=== PATIENT | male | born 1950 | race Caucasian/White ===

== ENCOUNTER 2023-12-26 18:11 | Observation (INO) | payer OTHER, MEDICARE ==
[2023-12-26] MEDS: Sodium Chloride 0.9% 1,000 ML IV ONE ×2 (18:25→19:30)
[2023-12-26 18:34] LABS: BASOPHILS ABSOLUTE AUTO 0.06 10^3/uL (0.00-0.10); BASOPHILS PERCENT AUTO 0.8 % (0.0-1.0); EOSINOPHILS ABSOLUTE AUTO 0.07 10^3/uL (0.10-0.30); HEMOGLOBIN 17.4 g/dL (13.0-17.0); IMMATURE GRAN ABSOLUTE AUTO 0.01 10^3/uL (0.00-0.50); IMMATURE GRAN PERCENT AUTO 0.1 % (0.0-5.0); LYMPHOCYTES ABSOLUTE AUTO 2.08 10^3/uL (1.00-4.00); MEAN CORPUSCULAR HEMOGLOBIN 33.7 pg (27.0-31.0); MEAN CORPUSCULAR HGB CONC 34.8 g/dL (32.0-36.0); MEAN CORPUSCULAR VOLUME 96.9 fL (82.0-92.0); MEAN PLATELET VOLUME 10.9 fL (7.4-10.4); MONOCYTES PERCENT AUTO 9.7 % (2.0-8.0); NEUTROPHILS ABSOLUTE AUTO 4.26 10^3/uL (2.50-7.00); NEUTROPHILS PERCENT AUTO 59.4 % (50.0-70.0); PLATELET COUNT,PLT 270 10^3/uL (150-400); RED BLOOD CELL COUNT 5.16 10^6/uL (4.50-6.00); RED CELL DISTRIBUTION WIDTH 13.2 % (11.5-14.5); WHITE BLOOD CELL COUNT,WBC 7.18 10^3/uL (5.00-10.00)
[2023-12-26 18:48] LABS: POTASSIUM,K 4.2 mmol/L (3.5-5.1)
[2023-12-26 19:07] LABS: ALBUMIN 2.64 g/dL (3.40-5.00); ANION GAP 19.5 mmol/L (5-15); CARBON DIOXIDE,CO2 20.7 mmol/L (21.0-32.0); CREATININE 0.63 mg/dL (0.51-1.17); EST CRCL DRUG DOSING (CG) 111.79 mL/min; PROTEIN TOTAL,TP 6.4 g/dL (6.4-8.2)
[2023-12-26 19:13] LABS: CALCIUM 8.4 mg/dL (8.7-10.3)
[2023-12-26] MEDS ORDERED: Thiamine 100 MG in Sodium Chloride 0.9% 100 ML IV ONE (19:13)
[2023-12-26] MEDS ORDERED: Folic Acid 50 MG/10 ML MDV IV ONE (19:15)
[2023-12-26] MEDS: Ondansetron 4 MG/2 ML SDV IVPUSH ONE (19:31)
[2023-12-26] MEDS: MVI, Adult with Vitamin K 10 ML, Folic Acid 1 MG, Thiamine 100 MG in D5 1/2 NS w/ 20 mE... IV ONE (19:59)
[2023-12-26] MEDS: Multivitamins with Minerals/Iron/Folic Acid/Lycopene Tab PO ONE (19:59)
[2023-12-26] MEDS: KCL IV ONE (20:00)
[2023-12-26] MEDS: THIAMINE IV ONE (20:00)
[2023-12-26] MEDS: D5 IV ONE (20:00)
[2023-12-26] MEDS: 1/2 NS W IV ONE (20:00)
[2023-12-26] MEDS: FOLIC ACID IV ONE (20:00)
[2023-12-26] MEDS ORDERED: Acetaminophen 325 MG Tab PO PRN (21:42)
[2023-12-26] MEDS ORDERED: Polyethylene Glycol 3350 Powder 17 GM Packet PO PRN (21:42)
[2023-12-26] MEDS ORDERED: Acetaminophen/oxyCODONE 325-5 MG Tab PO PRN (21:42)
[2023-12-26] MEDS ORDERED: Albuterol/Ipratropium 3.0-0.5 MG/3 ML Neb Soln NEB PRN (21:42)
[2023-12-26] MEDS ORDERED: Promethazine 25 MG/ML SDV IM PRN (21:42)
[2023-12-26] MEDS ORDERED: Docusate Sodium 100 MG Cap PO PRN (21:42)
[2023-12-26] MEDS ORDERED: Ondansetron 4 MG Tab.DIS PO PRN (21:42)
[2023-12-26] MEDS ORDERED: Melatonin 3 MG Tab PO PRN (21:42)
[2023-12-27 01:37] LABS: APPEARANCE,URINE CLEAR (CLEAR); BILIRUBIN,URINE NEGATIVE (NEGATIVE); COLOR,URINE YELLOW (YELLOW); GLUCOSE,URINE NEGATIVE (NEGATIVE); KETONES,URINE NEGATIVE (NEGATIVE); LEUKOCYTE ESTERASE,URINE NEGATIVE (NEGATIVE); NITRITE,URINE NEGATIVE (NEGATIVE); OCCULT BLOOD,URINE NEGATIVE (NEGATIVE); PROTEIN,URINE NEGATIVE (NEGATIVE); UROBILINOGEN,URINE 0.2 E.U./dL (0.2-1.0)
[2023-12-27 01:44] LABS: BACTERIA,URINE OCCASIONAL /HPF (NONE TO FEW); EPITHELIAL CELLS,URINE FEW /LPF; RBC,URINE 0-5 /HPF (0-5); WBC,URINE 0-5 /HPF (0-5)
[2023-12-27 07:06] LABS: BASOPHILS ABSOLUTE AUTO 0.07 10^3/uL (0.00-0.10); BASOPHILS PERCENT AUTO 0.9 % (0.0-1.0); EOSINOPHILS ABSOLUTE AUTO 0.12 10^3/uL (0.10-0.30); EOSINOPHILS PERCENT AUTO 1.6 % (1.0-3.0); HEMATOCRIT 45.4 % (40.0-52.0); HEMOGLOBIN 15.6 g/dL (13.0-17.0); IMMATURE GRAN ABSOLUTE AUTO 0.01 10^3/uL (0.00-0.50); IMMATURE GRAN PERCENT AUTO 0.1 % (0.0-5.0); LYMPHOCYTES ABSOLUTE AUTO 2.07 10^3/uL (1.00-4.00); LYMPHOCYTES PERCENT AUTO 27.1 % (20.0-40.0); MEAN CORPUSCULAR HEMOGLOBIN 33.5 pg (27.0-31.0); MEAN CORPUSCULAR HGB CONC 34.4 g/dL (32.0-36.0); MEAN CORPUSCULAR VOLUME 97.4 fL (82.0-92.0); MEAN PLATELET VOLUME 10.4 fL (7.4-10.4); MONOCYTES ABSOLUTE AUTO 0.97 10^3/uL (0.10-0.80); MONOCYTES PERCENT AUTO 12.7 % (2.0-8.0); NEUTROPHILS ABSOLUTE AUTO 4.39 10^3/uL (2.50-7.00); NEUTROPHILS PERCENT AUTO 57.6 % (50.0-70.0); PLATELET COUNT,PLT 220 10^3/uL (150-400); RED BLOOD CELL COUNT 4.66 10^6/uL (4.50-6.00); RED CELL DISTRIBUTION WIDTH 13.2 % (11.5-14.5); WHITE BLOOD CELL COUNT,WBC 7.63 10^3/uL (5.00-10.00)
[2023-12-27 07:21] LABS: ALBUMIN 2.16 g/dL (3.40-5.00); ANION GAP 9.3 mmol/L (5-15); BILIRUBIN TOTAL 1.7 mg/dL (0.2-1.0); CALCIUM 8.1 mg/dL (8.7-10.3); CARBON DIOXIDE,CO2 29.6 mmol/L (21.0-32.0); CREATININE 0.72 mg/dL (0.51-1.17); EST CRCL DRUG DOSING (CG) 97.82 mL/min; MAGNESIUM 1.8 mg/dL (1.8-2.4); PHOSPHORUS 3.2 mg/dL (2.6-4.7); POTASSIUM,K 4.9 mmol/L (3.5-5.1); PROTEIN TOTAL,TP 5.3 g/dL (6.4-8.2)
[2023-12-27] MEDS: Enoxaparin 40 MG/0.4 ML Syringe SUBCUT SCH (08:34)
[2023-12-27] MEDS: Magnesium Oxide 500 MG Tab PO ONE (08:35)
[2023-12-27] MEDS: Nicotine 21 MG/24 Hr Patch TRDERM SCH (08:38)
== END 2023-12-27 12:46 | disposition home or self-care (01) ==
LOC: KA.ED 18:11 → KA.MS 20:06
PROVIDERS: ADMIT Nurse Practitioner Family; ATTEND Internal Medicine
DX: R62.7 Adult failure to thrive (principal); R53.1 Weakness; R63.0 Anorexia; E87.20 Acidosis, unspecified; D75.1 Secondary polycythemia; F10.20 Alcohol dependence, uncomplicated
CPT/HCPCS: 36415; 80053; 81001; 82947; 83605; 83735; 84100; 85025; 87040; 93010; 96361; 96374; 99284; 99285-25; A9270-GY; J1650; J2405; J3411; J3480; J3490; J7030; Q3014

== ENCOUNTER 2024-08-22 14:52 | Emergency (ER) | payer OTHER ==
[2024-08-22] MEDS: Diphtheria,Pertussis(Acell),Tetanus Vaccine 0.5 ML Syringe IM ONE (15:30)
[2024-08-22 16:32] VITALS: BP 152/76; PULSE 76
[2024-08-22] MEDS: Lidocaine 2% with EPINEPHrine 1:100,000 20 ML MDV INJECT ONE (16:47)
[2024-08-22] MEDS: Lidocaine 2% with EPINEPHrine 1:100,000 20 ML MDV ONE (16:47)
== END 2024-08-22 15:57 | disposition home or self-care (01) ==
LOC: KA.ED 14:52
DX: S81.812A Laceration without foreign body, left lower leg, initial encounter (principal); Z23 Encounter for immunization; Z88.8 Allergy status to other drugs, medicaments and biological substances; Z79.899 Other long term (current) drug therapy; W26.8XXA Contact with other sharp object(s), not elsewhere classified, initial encounter; Y93.01 Activity, walking, marching and hiking; Y92.009 Unspecified place in unspecified non-institutional (private) residence as the place of occurrence of the external cause
CPT/HCPCS: 12002; 90471; 90715; 99282-25; 99283; J3490

== ENCOUNTER 2024-10-15 20:43 | Emergency (ER) | payer OTHER ==
[2024-10-15 21:00] LABS: BASOPHILS ABSOLUTE AUTO 0.04 10^3/uL (0.00-0.10); BASOPHILS PERCENT AUTO 0.4 % (0.0-1.0); EOSINOPHILS ABSOLUTE AUTO 0.05 10^3/uL (0.10-0.30); EOSINOPHILS PERCENT AUTO 0.5 % (1.0-3.0); HEMATOCRIT 40.6 % (40.0-52.0); HEMOGLOBIN 13.4 g/dL (13.0-17.0); IMMATURE GRAN ABSOLUTE AUTO 0.01 10^3/uL (0.00-0.04); IMMATURE GRAN PERCENT AUTO 0.1 % (0.0-0.4); LYMPHOCYTES ABSOLUTE AUTO 3.06 10^3/uL (1.00-4.00); LYMPHOCYTES PERCENT AUTO 27.7 % (20.0-40.0); MEAN CORPUSCULAR HEMOGLOBIN 31.8 pg (27.0-31.0); MEAN CORPUSCULAR VOLUME 96.2 fL (82.0-92.0); MEAN PLATELET VOLUME 9.9 fL (7.4-10.4); MONOCYTES PERCENT AUTO 8.2 % (2.0-8.0); NEUTROPHILS ABSOLUTE AUTO 6.97 10^3/uL (2.50-7.00); NEUTROPHILS PERCENT AUTO 63.1 % (50.0-70.0); PLATELET COUNT,PLT 286 10^3/uL (150-400); RED BLOOD CELL COUNT 4.22 10^6/uL (4.50-6.00); RED CELL DISTRIBUTION WIDTH 14.1 % (11.5-14.5); WHITE BLOOD CELL COUNT,WBC 11.03 10^3/uL (5.00-10.00)
[2024-10-15 21:14] LABS: ALBUMIN 2.59 g/dL (3.40-5.00); ANION GAP 9.7 mmol/L (5-15); BILIRUBIN TOTAL 0.3 mg/dL (0.2-1.0); CALCIUM 8.4 mg/dL (8.7-10.3); CARBON DIOXIDE,CO2 26.5 mmol/L (21.0-32.0); CREATININE 0.64 mg/dL (0.51-1.17); EST CRCL DRUG DOSING (CG) 118.71 mL/min; POTASSIUM,K 4.2 mmol/L (3.5-5.1); PROTEIN TOTAL,TP 5.7 g/dL (6.4-8.2)
[2024-10-15] MEDS: Sodium Chloride 0.9% 1,000 ML IV SCH (22:20)
[2024-10-15] MEDS: Iopamidol 755 Mg/ML 100 ML Bottle IV ONE (22:53)
[2024-10-15] MEDS: Sodium Chloride 0.9% 100 ML IV SCH (22:53)
== END 2024-10-16 00:30 ==
LOC: EDBD 20:43 → KA.ED 20:43
DX: R04.2 Hemoptysis (principal); Z88.8 Allergy status to other drugs, medicaments and biological substances; Z79.899 Other long term (current) drug therapy
CPT/HCPCS: 36415; 71045; 71275; 80053; 85025; 99285; J7030; Q9967

== ENCOUNTER 2025-03-21 20:23 | Emergency (ER) | payer OTHER ==
[2025-03-21] MEDS: Sodium Chloride 0.9% 10 ML Syringe FLUSH PRN (20:35)
[2025-03-21 20:46] LABS: BASOPHILS ABSOLUTE AUTO 0.01 10^3/uL (0.00-0.10); BASOPHILS PERCENT AUTO 0.1 % (0.0-1.0); EOSINOPHILS ABSOLUTE AUTO 0.02 10^3/uL (0.10-0.30); EOSINOPHILS PERCENT AUTO 0.2 % (1.0-3.0); IMMATURE GRAN ABSOLUTE AUTO 0.03 10^3/uL (0.00-0.04); IMMATURE GRAN PERCENT AUTO 0.3 % (0.0-0.4); LYMPHOCYTES ABSOLUTE AUTO 1.61 10^3/uL (1.00-4.00); LYMPHOCYTES PERCENT AUTO 13.7 % (20.0-40.0); MEAN PLATELET VOLUME 11.5 fL (7.4-10.4); MONOCYTES ABSOLUTE AUTO 0.75 10^3/uL (0.10-0.80); MONOCYTES PERCENT AUTO 6.4 % (2.0-8.0); NEUTROPHILS ABSOLUTE AUTO 9.33 10^3/uL (2.50-7.00); NEUTROPHILS PERCENT AUTO 79.3 % (50.0-70.0); PLATELET COUNT,PLT 164 10^3/uL (150-400); RED BLOOD CELL COUNT 3.82 10^6/uL (4.50-6.00); RED CELL DISTRIBUTION WIDTH 13.4 % (11.5-14.5); WHITE BLOOD CELL COUNT,WBC 11.75 10^3/uL (5.00-10.00)
[2025-03-21 21:00] LABS: ALANINE AMINOTRANSFERASE,ALT 36 U/L (14-63); ASPARTATE AMNIOTRANSFERASE,AST 29 U/L (15-37); BILIRUBIN TOTAL 0.6 mg/dL (0.2-1.0); BLOOD UREA NITROGEN,BUN 24 mg/dL (7-18); CARBON DIOXIDE,CO2 25.1 mmol/L (21.0-32.0); CHLORIDE,CL 95 mmol/L (98-107); CREATININE 0.95 mg/dL (0.51-1.17); GLUCOSE RANDOM 107 mg/dL (70-140); POTASSIUM,K 4.8 mmol/L (3.5-5.1); PROTEIN TOTAL,TP 5.3 g/dL (6.4-8.2); SODIUM,NA 128 mmol/L (136-145)
[2025-03-21 21:02] LABS: ESTIMATED GFR 85 mL/min (>=60)
[2025-03-21 21:03] LABS: B-TYPE NATRIURETIC PEPTIDE,BNP 27 pg/mL (0-100)
[2025-03-21 22:41] LABS: APPEARANCE,URINE CLEAR (CLEAR); GLUCOSE,URINE NEGATIVE (NEGATIVE)
[2025-03-21 22:50] LABS: EPITHELIAL CELLS,URINE RARE /LPF; OCCULT BLOOD,URINE TRACE-INTACT (NEGATIVE)
== END 2025-03-22 01:32 ==
LOC: KA.ED 20:23
DX: J43.9 Emphysema, unspecified (principal); R33.9 Retention of urine, unspecified; E86.0 Dehydration; R62.7 Adult failure to thrive; F32.A Depression, unspecified; F17.210 Nicotine dependence, cigarettes, uncomplicated; Z88.8 Allergy status to other drugs, medicaments and biological substances; Z79.899 Other long term (current) drug therapy
CPT/HCPCS: 51701; 71045; 80053; 81001; 83605; 83880; 84484; 85025; 86140; 87428-QW; 96360; 96361; 99285-25; A4315; J7030

== ENCOUNTER 2025-05-16 16:38 | Emergency (ER) | payer OTHER ==
[2025-05-16] MEDS ORDERED: Sodium Chloride 0.9% 10 ML Syringe FLUSH PRN (17:06)
[2025-05-16 17:27] LABS: BASOPHILS ABSOLUTE AUTO 0.07 10^3/uL (0.00-0.10); BASOPHILS PERCENT AUTO 0.7 % (0.0-1.0); EOSINOPHILS ABSOLUTE AUTO 0.12 10^3/uL (0.10-0.30); EOSINOPHILS PERCENT AUTO 1.2 % (1.0-3.0); IMMATURE GRAN ABSOLUTE AUTO 0.02 10^3/uL (0.00-0.04); IMMATURE GRAN PERCENT AUTO 0.2 % (0.0-0.4); LYMPHOCYTES ABSOLUTE AUTO 2.92 10^3/uL (1.00-4.00); LYMPHOCYTES PERCENT AUTO 30.3 % (20.0-40.0); MEAN PLATELET VOLUME 9.7 fL (7.4-10.4); MONOCYTES ABSOLUTE AUTO 0.98 10^3/uL (0.10-0.80); MONOCYTES PERCENT AUTO 10.2 % (2.0-8.0); NEUTROPHILS ABSOLUTE AUTO 5.53 10^3/uL (2.50-7.00); NEUTROPHILS PERCENT AUTO 57.4 % (50.0-70.0); PLATELET COUNT,PLT 442 10^3/uL (150-400); RED BLOOD CELL COUNT 3.49 10^6/uL (4.50-6.00); RED CELL DISTRIBUTION WIDTH 13.7 % (11.5-14.5); WHITE BLOOD CELL COUNT,WBC 9.64 10^3/uL (5.00-10.00)
[2025-05-16 17:56] LABS: ALANINE AMINOTRANSFERASE,ALT 12.0 U/L (14-63); ASPARTATE AMNIOTRANSFERASE,AST 20.0 U/L (15-37); BILIRUBIN TOTAL 0.3 mg/dL (0.2-1.0); BLOOD UREA NITROGEN,BUN 8.0 mg/dL (7-18); CARBON DIOXIDE,CO2 24.4 mmol/L (21.0-32.0); CHLORIDE,CL 94.0 mmol/L (98-107); CREATININE 0.73 mg/dL (0.51-1.17); EST CRCL DRUG DOSING (CG) 94.25 mL/min; ESTIMATED GFR 96.0 mL/min (>=60); GLUCOSE RANDOM 117.0 mg/dL (70-140); POTASSIUM,K 4.6 mmol/L (3.5-5.1); PROTEIN TOTAL,TP 6.4 g/dL (6.4-8.2); SODIUM,NA 129.0 mmol/L (136-145)
[2025-05-16 19:50] LABS: APPEARANCE,URINE SLIGHTLY CLOUDY (CLEAR); GLUCOSE,URINE NEGATIVE (NEGATIVE); OCCULT BLOOD,URINE NEGATIVE (NEGATIVE)
[2025-05-16 19:55] LABS: EPITHELIAL CELLS,URINE RARE /LPF
[2025-05-16 20:02] LABS: BLOOD UREA NITROGEN,BUN 10.0 mg/dL (7-18); CARBON DIOXIDE,CO2 26.3 mmol/L (21.0-32.0); CHLORIDE,CL 95.0 mmol/L (98-107); CREATININE 0.67 mg/dL (0.51-1.17); EST CRCL DRUG DOSING (CG) 102.69 mL/min; GLUCOSE RANDOM 100.0 mg/dL (70-140); POTASSIUM,K 4.5 mmol/L (3.5-5.1); SODIUM,NA 130.0 mmol/L (136-145)
[2025-05-16 20:03] LABS: ESTIMATED GFR 99.0 mL/min (>=60)
== END 2025-05-16 20:45 | disposition home or self-care (01) ==
LOC: KA.ED 16:38
DX: E87.1 Hypo-osmolality and hyponatremia (principal); J43.9 Emphysema, unspecified; N39.0 Urinary tract infection, site not specified; D64.9 Anemia, unspecified; Z88.8 Allergy status to other drugs, medicaments and biological substances; Z79.890 Hormone replacement therapy; Z79.899 Other long term (current) drug therapy
CPT/HCPCS: 36415; 70450; 71046; 80048; 80053; 81001; 82947; 83605; 84484; 85025; 87086; 87088; 96361; 96374; 99285; J0696; J7030; J7131

== ENCOUNTER 2025-05-27 14:15 | Inpatient (IN) | payer OTHER, MEDICARE ==
[2025-05-27 14:59] LABS: BASOPHILS ABSOLUTE AUTO 0.07 10^3/uL (0.00-0.10); BASOPHILS PERCENT AUTO 0.9 % (0.0-1.0); EOSINOPHILS ABSOLUTE AUTO 0.20 10^3/uL (0.10-0.30); EOSINOPHILS PERCENT AUTO 2.6 % (1.0-3.0); IMMATURE GRAN ABSOLUTE AUTO 0.01 10^3/uL (0.00-0.04); IMMATURE GRAN PERCENT AUTO 0.1 % (0.0-0.4); LYMPHOCYTES ABSOLUTE AUTO 2.78 10^3/uL (1.00-4.00); LYMPHOCYTES PERCENT AUTO 36.7 % (20.0-40.0); MEAN PLATELET VOLUME 9.6 fL (7.4-10.4); MONOCYTES ABSOLUTE AUTO 0.70 10^3/uL (0.10-0.80); MONOCYTES PERCENT AUTO 9.2 % (2.0-8.0); NEUTROPHILS ABSOLUTE AUTO 3.82 10^3/uL (2.50-7.00); NEUTROPHILS PERCENT AUTO 50.5 % (50.0-70.0); PLATELET COUNT,PLT 404 10^3/uL (150-400); RED BLOOD CELL COUNT 4.08 10^6/uL (4.50-6.00); RED CELL DISTRIBUTION WIDTH 13.4 % (11.5-14.5); WHITE BLOOD CELL COUNT,WBC 7.58 10^3/uL (5.00-10.00)
[2025-05-27 15:15] LABS: ALANINE AMINOTRANSFERASE,ALT 13.0 U/L (14-63); ASPARTATE AMNIOTRANSFERASE,AST 17.0 U/L (15-37); BILIRUBIN TOTAL 0.5 mg/dL (0.2-1.0); BLOOD UREA NITROGEN,BUN 5.0 mg/dL (7-18); CREATININE 0.55 mg/dL (0.51-1.17); EST CRCL DRUG DOSING (CG) 123.51 mL/min; GLUCOSE RANDOM 106.0 mg/dL (70-140); POTASSIUM,K 4.7 mmol/L (3.5-5.1); PROTEIN TOTAL,TP 6.3 g/dL (6.4-8.2); SODIUM,NA 123.0 mmol/L (136-145)
[2025-05-27 15:26] LABS: CARBON DIOXIDE,CO2 28.4 mmol/L (21.0-32.0)
[2025-05-27 15:27] LABS: ESTIMATED GFR 105.0 mL/min (>=60)
[2025-05-27 15:28] LABS: CHLORIDE,CL 89.0 mmol/L (98-107)
[2025-05-27 16:31] LABS: APPEARANCE,URINE CLEAR (CLEAR); GLUCOSE,URINE NEGATIVE (NEGATIVE); OCCULT BLOOD,URINE NEGATIVE (NEGATIVE)
[2025-05-27] MEDS ORDERED: Ondansetron 4 MG/2 ML SDV IV PRN (18:22)
[2025-05-27 22:26] LABS: BLOOD UREA NITROGEN,BUN 8.0 mg/dL (7-18); CARBON DIOXIDE,CO2 24.3 mmol/L (21.0-32.0); CHLORIDE,CL 95.0 mmol/L (98-107); CREATININE 0.53 mg/dL (0.51-1.17); EST CRCL DRUG DOSING (CG) 128.17 mL/min; GLUCOSE RANDOM 82.0 mg/dL (70-140); POTASSIUM,K 4.4 mmol/L (3.5-5.1); SODIUM,NA 127.0 mmol/L (136-145)
[2025-05-27 22:28] LABS: ESTIMATED GFR 106.0 mL/min (>=60)
[2025-05-28 07:16] LABS: MEAN PLATELET VOLUME 9.8 fL (7.4-10.4); PLATELET COUNT,PLT 368 10^3/uL (150-400); RED BLOOD CELL COUNT 3.67 10^6/uL (4.50-6.00); RED CELL DISTRIBUTION WIDTH 13.4 % (11.5-14.5); WHITE BLOOD CELL COUNT,WBC 6.80 10^3/uL (5.00-10.00)
[2025-05-28 07:35] LABS: A/G RATIO 0.83; ALANINE AMINOTRANSFERASE,ALT 12.0 U/L (14-63); ASPARTATE AMNIOTRANSFERASE,AST 24.0 U/L (15-37); BILIRUBIN DIRECT 0.1 mg/dL (0.0-0.2); BILIRUBIN INDIRECT 0.3 mg/dL; BILIRUBIN TOTAL 0.4 mg/dL (0.2-1.0); BLOOD UREA NITROGEN,BUN 6.0 mg/dL (7-18); CARBON DIOXIDE,CO2 24.3 mmol/L (21.0-32.0); CHLORIDE,CL 98.0 mmol/L (98-107); CREATININE 0.53 mg/dL (0.51-1.17); EST CRCL DRUG DOSING (CG) 128.17 mL/min; GLUCOSE RANDOM 85.0 mg/dL (70-140); POTASSIUM,K 4.2 mmol/L (3.5-5.1); PROTEIN TOTAL,TP 5.4 g/dL (6.4-8.2); SODIUM,NA 130.0 mmol/L (136-145)
[2025-05-28 07:39] LABS: ESTIMATED GFR 106.0 mL/min (>=60)
== END 2025-05-28 13:34 | disposition home or self-care (01) | DRG 641 ==
LOC: KA.ED 14:15 → KA.MS 16:58
PROVIDERS: ADMIT Internal Medicine; ATTEND Internal Medicine
DX: E87.1 Hypo-osmolality and hyponatremia (principal); R63.0 Anorexia; N39.0 Urinary tract infection, site not specified; R53.83 Other fatigue; Z66 Do not resuscitate; Z79.890 Hormone replacement therapy; R53.1 Weakness; E87.8 Other disorders of electrolyte and fluid balance, not elsewhere classified; F10.10 Alcohol abuse, uncomplicated; I50.9 Heart failure, unspecified; F17.200 Nicotine dependence, unspecified, uncomplicated; Z88.8 Allergy status to other drugs, medicaments and biological substances; Z79.899 Other long term (current) drug therapy; Z98.890 Other specified postprocedural states
CPT/HCPCS: 36415; 80048; 80053; 80076; 81003; 83605; 85025; 85027; 96360; 99223-GT; 99238-GT; 99284; 99285-25; A9270-GY; J1650; J7030; Q3014